=== PATIENT | female | born 1935 | race African-American/Black ===

== ENCOUNTER 2017-01-12 19:57 | Observation (INO) | payer OTHER ==
[~2017-01-12] VITALS: Ht 153.9 cm; Wt 69.4 kg
[~2017-01-12 19:57] MED LIST: DILT240C2 PO
[2017-01-12] MEDS ORDERED: ASPIRIN CHEWABLE 81 MG TABLET. PO ONE (20:15)
[2017-01-12 20:17] LABS: BASO % 1 % (0-3); EOS % 2 % (0-3); HEMATOCRIT 45.3 % (36.0-47.0); HEMOGLOBIN 15.3 g/dL (12.0-15.5); LYMPH % 26 % (24-48); MEAN CORPUSCULAR HEMOGLOBIN 31 pg (25-35); MEAN CORPUSCULAR HGB CONC 34 g/dL (31-37); MEAN CORPUSCULAR VOLUME 92 fL (79-100); MONO % 7 % (0-9); NEUT % 65 % (31-73); PLATELET COUNT 337 x10^3/uL (140-400); RED BLOOD COUNT 4.93 x10^6/uL (3.50-5.40); RED CELL DISTRIBUTION WIDTH 14.2 % (11.5-14.5); WHITE BLOOD COUNT 7.9 x10^3/uL (4.0-11.0)
[2017-01-12] MEDS ORDERED: LABETALOL 20 MG/4 ML DISP.SYRIN. IVP ONE (20:30)
[2017-01-12 20:35] LABS: CALCIUM 9.5 mg/dL (8.5-10.1); CREATININE 1.2 mg/dL (0.6-1.0); POTASSIUM 3.2 mmol/L (3.5-5.1)
[2017-01-12 20:39] LABS: ALBUMIN 3.6 g/dL (3.4-5.0); DIRECT BILIRUBIN 0.1 mg/dL (0.0-0.2); TOTAL BILIRUBIN 0.2 mg/dL (0.2-1.0); TOTAL PROTEIN 8.9 g/dL (6.4-8.2)
[2017-01-12] MEDS ORDERED: MORPHINE SULFATE 2 MG/ML DISP.SYRIN. IV PRN (20:45)
[2017-01-12] MEDS ORDERED: ONDANSETRON PF 4 MG/2 ML VIAL. IV PRN (20:45)
[2017-01-12] MEDS ORDERED: POTASSIUM CHLORIDE 20 MEQ TABLET.ER. PO ONE (21:00)
--- NOTE | 2017-01-12 21:17 | PHYS DOC ---
Past Medical History Past Medical History: Hypertension, Other Additional Past Medical Histor: IRREGULAR HEART BEAT Past Surgical History: Other Alcohol Use: None Drug Use: None Adult General Chief Complaint Chief Complaint: CHEST PAIN HPI HPI 81-year-old female presenting to the emergency department today with chest pain and pressure. She reports this started around 7:00. It comes and goes and is mildly associated with shortness of breath. She denies nausea vomiting or diaphoresis. She has had a cough for the last few days. She denies unilateral leg swelling hemoptysis or personal or family history of blood clotting disorders. She denies fevers or chills. She has a history of high blood pressure , she denies a history of smoking. She denies diabetes. Review of systems is negative for fevers chills, abdominal pain nausea vomiting. All other review of systems is negative unless otherwise noted in history of present illness. ED course: 81-year-old female presenting to the emergency department with chest pain. Vital signs show the patient to be hypertensive. Otherwise afebrile with mild tachycardia. Pertinent physical exam findings show an unremarkable physical exam. Clear lungs bilaterally. EKG reviewed by myself shows sinus rhythm with a mildly tachycardic heart rate. ST segments congruent. [place] mildly leftward. Not consistent with ACS.Chest x-ray reviewed by myself shows no obvious infiltrate or pneumothorax present. No obvious acute cardiopulmonary process present. Blood work obtained and unremarkable other than mild low potassium. Troponin negative. Given patient's age and symptomatology, patient admitted for serial troponins and further evaluation workup and care. Cardiology consult placed. Review of Systems Review of Systems SEE ABOVE. Current Medications Current Medications Current Medications Medications (Trade) Dose Ordered Sig/[facility] Start Time Stop Time Status Last Admin Dose Admin Aspirin (Children'S Aspirin) 81 mg 1X ONCE 01/12/17 20:15 01/12/17 20:16 DC 01/12/17 20:23 81 MG Labetalol HCl (Normodyne) 10 mg 1X ONCE 01/12/17 20:30 01/12/17 20:31 DC 01/12/17 20:34 10 MG Allergies Allergies Allergies Coded Allergies Type Severity Reaction Last Updated Verified Penicillins Allergy Intermediate 06/09/16 Yes Physical Exam Physical Exam SEE ABOVE Constitutional: Well developed, well nourished, no acute distress, non-toxic appearance. [] HENT: Normocephalic, atraumatic, bilateral external ears normal, oropharynx moist, no oral exudates, nose normal. [] Eyes: PERRLA, EOMI, conjunctiva normal, no discharge. [] Neck: Normal range of motion, no tenderness, supple, no stridor. [] Cardiovascular:Heart rate regular rhythm, no murmur [] Lungs & Thorax: Bilateral breath sounds clear to auscultation [] Abdomen: Bowel sounds normal, soft, no tenderness, no masses, no pulsatile masses. [] Skin: Warm, dry, no erythema, no rash. [] Back: No tenderness, no CVA tenderness. [] Extremities: No tenderness, no cyanosis, no clubbing, ROM intact, no edema. [] Neurologic: Alert and oriented X 3, normal motor function, normal sensory function, no focal deficits noted. [] Psychologic: Affect normal, judgement normal, mood normal. [] Current Patient Data Vital Signs Vital Signs Date Time Temp Pulse Resp B/P (MAP) Pulse Ox O2 Delivery O2 Flow Rate FiO2 01/12/17 20:38 98 25 177/98 (124) 96 Room Air 01/12/17 20:01 98.6 98.6 Lab Values Laboratory Tests Test 01/12/17 20:10 White Blood Count 7.9 x10^3/uL (4.0-11.0) Red Blood Count 4.93 x10^6/uL (3.50-5.40) Hemoglobin 15.3 g/dL (12.0-15.5) Hematocrit 45.3 % (36.0-47.0) Mean Corpuscular Volume 92 fL (79-100) Mean Corpuscular Hemoglobin 31 pg (25-35) Mean Corpuscular Hemoglobin Concent 34 g/dL (31-37) Red Cell Distribution Width 14.2 % (11.5-14.5) Platelet Count 337 x10^3/uL (140-400) Neutrophils (%) (Auto) 65 % (31-73) Lymphocytes (%) (Auto) 26 % (24-48) Monocytes (%) (Auto) 7 % (0-9) Eosinophils (%) (Auto) 2 % (0-3) Basophils (%) (Auto) 1 % (0-3) Neutrophils # (Auto) 5.1 x10^3uL (1.8-7.7) Lymphocytes # (Auto) 2.0 x10^3/uL (1.0-4.8) Monocytes # (Auto) 0.6 x10^3/uL (0.0-1.1) Eosinophils # (Auto) 0.1 x10^3/uL (0.0-0.7) Basophils # (Auto) 0.0 x10^3/uL (0.0-0.2) Sodium Level 141 mmol/L (136-145) Potassium Level 3.2 mmol/L (3.5-5.1) L Chloride Level 102 mmol/L (98-107) Carbon Dioxide Level 27 mmol/L (21-32) Anion Gap 12 (6-14) Blood Urea Nitrogen 12 mg/dL (7-20) Creatinine 1.2 mg/dL (0.6-1.0) H Estimated GFR (Cockcroft-Gault) 52.0 Glucose Level 129 mg/dL (70-99) H Calcium Level 9.5 mg/dL (8.5-10.1) Total Bilirubin 0.2 mg/dL (0.2-1.0) Direct Bilirubin 0.1 mg/dL (0.0-0.2) Aspartate Amino Transferase (AST) 35 U/L (15-37) Alanine Aminotransferase (ALT) 31 U/L (14-59) Alkaline Phosphatase 137 U/L (46-116) H Troponin I Quantitative < 0.017 ng/mL (0.000-0.055) KG-Qqf-H-Type Natriuretic Peptide 157 pg/mL (0-449) Total Protein 8.9 g/dL (6.4-8.2) H Albumin 3.6 g/dL (3.4-5.0) Lipase 208 U/L (73-393) Laboratory Tests 01/12/17 20:10 Laboratory Tests 01/12/17 20:10 EKG EKG [] Radiology/Procedures Radiology/Procedures [] Course & Med Decision Making Course & Med Decision Making Pertinent Labs and Imaging studies reviewed. (See chart for details) [] Dragon Disclaimer Dragon Disclaimer This electronic medical record was generated, in whole or in part, using a voice recognition dictation system. Departure Departure Impression: Primary Impression: Chest pain Disposition: ADMITTED INPATIENT Admitting Physician: Oleksandr Prajapati Condition: STABLE Referrals: GURWINDER CANCINO MD (PCP) BALDOMERO PLATA MD Jan 12, 2017 21:17
[2017-01-12 21:30] VITALS: BP 187/100
[2017-01-12] MEDS ORDERED: ENALAPRILAT 1.25 MG/ML VIAL. IV PRN (22:15)
[2017-01-12] MEDS ORDERED: ENALAPRILAT 2.5 MG/2 ML VIAL. IV ONE (22:15)
[2017-01-12 23:00] VITALS: BP 141/85
[2017-01-13 03:00] VITALS: BP 157/84
[2017-01-13 03:07] LABS: BASO % 1 % (0-3); EOS % 2 % (0-3); HEMATOCRIT 39.1 % (36.0-47.0); HEMOGLOBIN 13.2 g/dL (12.0-15.5); LYMPH # 1.5 x10^3/uL (1.0-4.8); LYMPH % 20 % (24-48); MEAN CORPUSCULAR HEMOGLOBIN 31 pg (25-35); MEAN CORPUSCULAR HGB CONC 34 g/dL (31-37); MEAN CORPUSCULAR VOLUME 92 fL (79-100); MONO % 10 % (0-9); NEUT % 68 % (31-73); PLATELET COUNT 276 x10^3/uL (140-400); RED BLOOD COUNT 4.27 x10^6/uL (3.50-5.40); RED CELL DISTRIBUTION WIDTH 14.2 % (11.5-14.5); WHITE BLOOD COUNT 7.7 x10^3/uL (4.0-11.0)
[2017-01-13 03:12] LABS: CALCIUM 8.8 mg/dL (8.5-10.1); CREATININE 1.1 mg/dL (0.6-1.0); GFR 57.5; POTASSIUM 3.7 mmol/L (3.5-5.1)
[2017-01-13 07:00] VITALS: BP 164/80
--- NOTE | 2017-01-13 07:13 | EKG ---
[facility] [address] [place] [address] Test Date: 2017-01-12 Test Time: 20:05:32 Pat Name: ANGELO WILDER Department: Room: Gender: F Network Operations Specialist: : 1935 Requested By: BALDOMERO PLATA Order Number: [id number] Reading MD: Measurements Intervals [place] Rate: 103 P: 28 CO: 166 QRS: -14 QRSD: 72 T: 96 QT: 356 QTc: 468 Interpretive Statements SINUS TACHYCARDIA LEFT ATRIAL ABNORMALITY LEFTWARD AXIS QRS(T) CONTOUR ABNORMALITY CONSIDER ANTEROSEPTAL MYOCARDIAL DAMAGE T ABNORMALITY IN ANTERIOR LEADS LATERAL LEADS RI6.01 Unconfirmed report No previous ECG available for comparison
--- NOTE | 2017-01-13 07:32 | RAD ---
Portable chest, 01/12/2017: History: Chest pain, tachycardia Comparison is made to a study from 06/09/2016. The heart is at the upper limits of normal in size. The pulmonary vascularity is normal. There is mild aortic atherosclerosis. No pulmonary infiltrates are seen. There is no evidence of pleural fluid. IMPRESSION: No acute cardiopulmonary abnormality is detected.
[2017-01-13] MEDS ORDERED: LABETALOL 20 MG/4 ML DISP.SYRIN. IVP PRN (09:15)
--- NOTE | 2017-01-13 09:16 | PDOC2 ---
SWETHA HERNÁNDEZ CONTROL MANAGER 01/13/17 0916: CARDIAC CONSULT DATE OF CONSULT Date of Consult DATE: 01/13/17 TIME: 09:02 REASON FOR CONSULT Reason for Consult: CP REFERRING PHYSICIAN Referring Physician: Reba SOURCE Source: Chart review, Patient HISTORY OF PRESENT ILLNESS HISTORY OF PRESENT ILLNESS This is a pleasant 81 yo female admitted for complains of CP. Reports that she has been feeling more tired lately and blaming this upon start of Cardizem. Also sometimes feeling CAO. Reports that yesterday she fel palpitations and decided to walk it off but got worse. This recurred at least 3 times yesterday which seemed became longer. This was associated with SOA, lightheadedness and chest tightness. Upon admission she was noted with uncontrolled BP rather than fast HR. Unfortunately she does not check her BP/HR at home since she does not have any machine for it. She has been taking cardizem in replacement to her enalapril/HCTZ/catapres for PSVT. Denies AFIB/aflutter and she does not take any ASA. Her BP was much better after labetolol and enalaprilat IV. She did skip one night of her cardizem otherwise she is complaint with her medications. Denies any decongestant use, excessive caffeinated beverage consumption. Denies any falls or injury. She has been having dry cough lately but denies any nasal congestion. No fever or chills. PAST MEDICAL HISTORY Cardiovascular: HTN, Hyperlipidemia, Other (PSVT) Pulmonary: No pertinent hx CENTRAL NERVOUS SYSTEM: Other GI: No pertinent hx Heme/Onc: No pertinent hx Hepatobiliary: No pertinent hx Psych: No pertinent hx Musculoskeletal: Osteoarthritis, Other (Vitamin D deficiency) Rheumatologic: No pertinent hx Infectious disease: No pertinent hx ENT: No pertinent hx Renal/: No pertinent hx Endocrine: No pertinent hx PAST SURGICAL HISTORY Past Surgical History: No pertinent history FAMILY HISTORY Family History: Hypertension SOCIAL HISTORY Smoke: No ALCOHOL: none Drugs: None Lives: Alone CURRENT MEDICATIONS CURRENT MEDICATIONS Current Medications Medications (Trade) Dose Ordered Sig/Judit Route PRN Reason Start Time Stop Time Status Last Admin Dose Admin Aspirin (Children'S Aspirin) 81 mg 1X ONCE PO 01/12/17 20:15 01/12/17 20:16 DC 01/12/17 20:23 Labetalol HCl (Normodyne) 10 mg 1X ONCE IVP 01/12/17 20:30 01/12/17 20:31 DC 01/12/17 20:34 Potassium Chloride (Klor-Con) 20 meq 1X ONCE PO 01/12/17 21:00 01/12/17 21:01 DC 01/12/17 21:14 Enalaprilat (Vasotec) 2.5 mg 1X ONCE IV 01/12/17 22:15 01/12/17 22:16 DC 01/12/17 22:44 ALLERGIES ALLERGIES: Coded Allergies: Penicillins (Verified Allergy, Intermediate, 06/09/16) ROS Review of System 14 point ROS evaluated with pertinent positives noted per HPI PHYSICAL EXAM General: Alert, Oriented X3, Cooperative, No acute distress HEENT: Atraumatic, Mucous membr. moist/pink Lungs: Clear to auscultation, Normal air movement Heart: Regular rate (SR), Normal S1, Normal S2, Other (2/6 systolic murmur to LLS border) Abdomen: Soft, No tenderness Extremities: No cyanosis, No edema Skin: No breakdown, No significant lesion Neuro: Normal speech, Sensation intact Psych/Mental Status: Mental status NL, Mood NL MUSCULOSKELETAL: Osteoarthritic changes both hands VITALS VITALS Vital Signs Date Time Temp Pulse Resp B/P (MAP) Pulse Ox O2 Delivery O2 Flow Rate FiO2 01/13/17 08:15 Room Air 01/13/17 07:00 97.9 64 16 164/80 (108) 98 97.9 LABS Lab: Laboratory Tests Test 01/12/17 20:10 01/13/17 02:50 White Blood Count 7.9 x10^3/uL (4.0-11.0) 7.7 x10^3/uL (4.0-11.0) Red Blood Count 4.93 x10^6/uL (3.50-5.40) 4.27 x10^6/uL (3.50-5.40) Hemoglobin 15.3 g/dL (12.0-15.5) 13.2 g/dL (12.0-15.5) Hematocrit 45.3 % (36.0-47.0) 39.1 % (36.0-47.0) Mean Corpuscular Volume 92 fL (79-100) 92 fL (79-100) Mean Corpuscular Hemoglobin 31 pg (25-35) 31 pg (25-35) Mean Corpuscular Hemoglobin Concent 34 g/dL (31-37) 34 g/dL (31-37) Red Cell Distribution Width 14.2 % (11.5-14.5) 14.2 % (11.5-14.5) Platelet Count 337 x10^3/uL (140-400) 276 x10^3/uL (140-400) Neutrophils (%) (Auto) 65 % (31-73) 68 % (31-73) Lymphocytes (%) (Auto) 26 % (24-48) 20 % (24-48) Monocytes (%) (Auto) 7 % (0-9) 10 % (0-9) Eosinophils (%) (Auto) 2 % (0-3) 2 % (0-3) Basophils (%) (Auto) 1 % (0-3) 1 % (0-3) Neutrophils # (Auto) 5.1 x10^3uL (1.8-7.7) 5.3 x10^3uL (1.8-7.7) Lymphocytes # (Auto) 2.0 x10^3/uL (1.0-4.8) 1.5 x10^3/uL (1.0-4.8) Monocytes # (Auto) 0.6 x10^3/uL (0.0-1.1) 0.7 x10^3/uL (0.0-1.1) Eosinophils # (Auto) 0.1 x10^3/uL (0.0-0.7) 0.1 x10^3/uL (0.0-0.7) Basophils # (Auto) 0.0 x10^3/uL (0.0-0.2) 0.0 x10^3/uL (0.0-0.2) Sodium Level 141 mmol/L (136-145) 144 mmol/L (136-145) Potassium Level 3.2 mmol/L (3.5-5.1) 3.7 mmol/L (3.5-5.1) Chloride Level 102 mmol/L (98-107) 107 mmol/L (98-107) Carbon Dioxide Level 27 mmol/L (21-32) 30 mmol/L (21-32) Anion Gap 12 (6-14) 7 (6-14) Blood Urea Nitrogen 12 mg/dL (7-20) 11 mg/dL (7-20) Creatinine 1.2 mg/dL (0.6-1.0) 1.1 mg/dL (0.6-1.0) Estimated GFR (Cockcroft-Gault) 52.0 57.5 Glucose Level 129 mg/dL (70-99) 102 mg/dL (70-99) Calcium Level 9.5 mg/dL (8.5-10.1) 8.8 mg/dL (8.5-10.1) Total Bilirubin 0.2 mg/dL (0.2-1.0) Direct Bilirubin 0.1 mg/dL (0.0-0.2) Aspartate Amino Transf (AST/SGOT) 35 U/L (15-37) Alanine Aminotransferase (ALT/SGPT) 31 U/L (14-59) Alkaline Phosphatase 137 U/L (46-116) Troponin I Quantitative < 0.017 ng/mL (0.000-0.055) 0.038 ng/mL (0.000-0.055) ZX-Gjm-P-Type Natriuretic Peptide 157 pg/mL (0-449) Total Protein 8.9 g/dL (6.4-8.2) Albumin 3.6 g/dL (3.4-5.0) Lipase 208 U/L (73-393) ECHOCARDIOGRAM ECHOCARDIOGRAM <Conclusion> Left ventricle systolic function is normal. The Ejection Fraction is 55-60%. There is normal LV segmental wall motion. No significant valvular disease. 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 Chest pain: Suspect due to tachyarrhythmia/palpitations. Typical features, will rule out ischemic origin 3. HLP 4. Hx of PSVT: likely episode of brief AFIB with aberrancy Recommendations 1. TTE and MPI today 2. Lipids, trop, TSH, repeat EKG 3. Resume home cardizem, restart lisinopril and HCTZ. Labetolol IV PRN 4. Replace K. 5. Pending report of MPI, will start on antiarrhythmic therapy. 6. Start on ECASA 81 mg and will consider for outpt event monitor if none has been done recently Problems: JAN FIORE MD 01/13/17 1419: CARDIAC CONSULT ALLERGIES ALLERGIES: Coded Allergies: Penicillins (Verified Allergy, Intermediate, 06/09/16) ASSESSMENT/PLAN ASSESSMENT/PLAN Patient seen and examined. Agree with SOLAR ENERGY SYSTEMS DESIGNER's assessment and plan Chest pain with atypical features. Myocardial infarction ruled out. 2-D echo showed normal LV function without any regional wall motion abnormalities. Plan for Lexiscan nuclear stress test to rule out ischemia. Resume home medications and titrate for better pressure control. Thank you for your consultation. Problems: SWETHA HERNÁNDEZ APRN Jan 13, 2017 09:16 JAN FIORE MD Jan 13, 2017 14:19
--- NOTE | 2017-01-13 09:29 | EKG ---
[facility] [address] [place] [address] Test Date: 2017-01-13 Test Time: 09:18:08 Pat Name: ANGELO WILDER Department: Room: 582 1 Gender: F Construction Rigger: JAVIER : 1935 Requested By: SWETHA HERNÁNDEZ Order Number: [id number] Reading MD: Measurements Intervals [place] Rate: 67 P: 42 NM: 186 QRS: -8 QRSD: 76 T: 60 QT: 430 QTc: 457 Interpretive Statements SINUS RHYTHM LEFTWARD AXIS QRS(T) CONTOUR ABNORMALITY CONSIDER ANTEROSEPTAL MYOCARDIAL DAMAGE POSSIBLY ABNORMAL ECG RI6.01 Compared to ECG 06/09/2016 10:55:39 Atrial abnormality no longer present
[2017-01-13] MEDS ORDERED: LISINOPRIL 10 MG TABLET PO SCH (10:00)
[2017-01-13] MEDS ORDERED: ASPIRIN ENTERIC COATED 81 MG TABLET.DR. PO SCH (10:00)
[2017-01-13 11:00] VITALS: BP 168/95
[2017-01-13] MEDS ORDERED: LORazepam 0.5 MG TABLET PO ONE (11:00)
--- NOTE | 2017-01-13 11:08 | CARD ---
APPROVED REPORT EXAM: Two-dimensional and M-mode echocardiogram with Doppler and color Doppler. Other Information Quality : Good INDICATION Hypertension/HCVD Chest Pain 2D DIMENSIONS RVDd2.0 (2.9-3.5cm)Left Atrium(2D)2.1 (1.6-4.0cm) IVSd1.5 (0.7-1.1cm)Aortic Root(2D)2.6 (2.0-3.7cm) LVDd3.6 (3.9-5.9cm)LVOT Diameter1.9 (1.8-2.4cm) PWd1.3 (0.7-1.1cm)LVDs2.1 (2.5-4.0cm) FS (%) 30.0 %SV40.9 ml LVEF(%)60.0 (>50%) Aortic Valve AoV Peak Perez.127.1cm/sAoV VTI24.8cm AO Peak GR.6.5mmHgLVOT Peak Perez.105.9cm/s AO Mean GR.4mmHgAVA (VMAX)2.36cm2 VIKKI (VTI)2.70cm2 Mitral Valve MV E Biyetnqi99.1cm/sMV DECEL [id number] MV A Owpqjheu490.1cm/sE/A Ratio0.5 Tricuspid Valve TR P. Amsrlsnx703sm/sRAP HVAKUQXG8frMr TR Peak Gr.60buUoLHJY98yzCc Pulmonary Vein S1 Kxstmjrz66.7cm/sD2 Aeokavme26.6cm/s LEFT VENTRICLE The left ventricle is normal size. There is mild to moderate concentric left ventricular hypertrophy. The left ventricular systolic function is normal. The Ejection Fraction is 55-60%. There is normal L V segmental wall motion. Transmitral Doppler flow pattern is Grade I-abnormal relaxation pattern. RIGHT VENTRICLE The right ventricle is normal size. The right ventricular systolic function is normal. ATRIA The left atrium size is normal. The right atrium size is normal. The interatrial septum is intact wit h no evidence for an atrial septal defect or patent foramen ovale as noted on 2-D or Doppler imaging. AORTIC VALVE The aortic valve is calcified but opens well. Doppler and Color Flow revealed no significant aortic r egurgitation. There is no significant aortic valvular stenosis. MITRAL VALVE The mitral valve is calcified but opens well. There is no evidence of mitral valve prolapse. There is no mitral valve stenosis. Doppler and Color-flow revealed trace to mild mitral regurgitation. TRICUSPID VALVE The tricuspid valve is normal in structure and function. Doppler and Color Flow revealed trace tricus pid regurgitation. There is mild pulmonary hypertension. The PA pressure was estimated at 31 mmHg. Th ere is no tricuspid valve stenosis. PULMONIC VALVE The pulmonary valve is normal in structure and function. Doppler and Color Flow revealed trace to mil d pulmonic valvular regurgitation. There is no pulmonic valvular stenosis. GREAT VESSELS The aortic root is normal in size. The ascending aorta is normal in size. The IVC is normal in size a nd collapses >50% with inspiration. PERICARDIAL EFFUSION There is a small pericardial effusion. Critical Notification Critical Value: No <Conclusion> The left ventricular systolic function is normal. The Ejection Fraction is 55-60%. There is normal LV segmental wall motion. Transmitral Doppler flow pattern is Grade I-abnormal relaxation pattern. Trace to mild mitral regurgitation. Trace tricuspid regurgitation. The PA pressure was estimated at 31 mmHg. There is a small pericardial effusion.
[2017-01-13] MEDS ORDERED: ASPIRIN ENTERIC COATED 81 MG TABLET.DR. PO ONE (12:29)
[2017-01-13] MEDS ORDERED: LORazepam 0.5 MG TABLET ONE (12:30)
[2017-01-13] MEDS ORDERED: REGADENOSON 0.4 MG/5 ML DISP.SYRIN. IV ONE (13:00)
--- NOTE | 2017-01-13 13:18 | HP ---
ADMIT DATE: 01/12/2017 CHIEF COMPLAINT: Chest pain. HISTORY OF PRESENT ILLNESS: Ms. Pereira is an 81-year-old -[place] woman who presented to the Emergency Room last night with chest pain. 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 The pain was in the middle of her chest, when she was walking back to her room. It abated when she sat down. She affirms some shortness of breath with this. She decided to go home. Had another episode there, also with walking, and when it happened for a third time, she decided to come to the Emergency Room. She did have similar symptoms in the past, actually sought medical care, but never had a cardiac catheterization done. She denies any other symptoms including nausea or dizziness. When she came to the Emergency Room, she was found with significantly elevated blood pressure. She does have a history of paroxysmal SVT, but denies any AFib or atrial flutter or other arrhythmias. PAST MEDICAL HISTORY: Hypertension, hyperlipidemia, paroxysmal SVT. FAMILY HISTORY: Positive for hypertension, heart disease and diabetes. SOCIAL HISTORY: Lives by herself, never smoked. No toxic habits. ALLERGIES: PENICILLIN. MEDICATIONS: MAR reconciled with home medications. REVIEW OF SYSTEMS: Chest pain currently is resolved. She denies any other symptoms in rest of organ system review. PHYSICAL EXAMINATION: VITAL SIGNS: From today show a blood pressure of 168/95, heart rate of 68, respiratory rate at 16. She is afebrile. GENERAL: This is a well-nourished 81-year-old -[place] woman, appearing younger than her stated age, alert and oriented, in no acute distress. HEENT: Shows no scleral icterus. NECK: Supple, without any JVD or lymphadenopathy. LUNGS: Clear to auscultation bilaterally. HEART: Regular rate and rhythm without any murmurs. ABDOMEN: Has positive bowel sounds, soft, nontender. EXTREMITIES: Show no edema, no clubbing, no cyanosis. SKIN: Warm, soft and dry without any rash. NEUROLOGIC: She appears grossly intact. LABORATORY DATA: CBC with a WBC of 7.7, hemoglobin 13.2, platelets of 276. BUN and creatinine of 11 and 1.1. Electrolytes within normal limits. Troponins with minimal increase to 0.038. LFTs obtained with an LDL at 139. RADIOGRAPHIC FINDINGS: Chest x-ray shows no acute cardiopulmonary abnormality. ASSESSMENT AND PLAN: Ms. Pereira is an 81-year-old -[place] woman who presented with anginal type chest pain. Cardiology has been consulted. She will undergo echocardiogram and stress test. Need for catheterization depends on the findings. I appreciate input. We will continue her diltiazem for now. Blood pressure clearly is uncontrolled, and may be actually the underlying etiology for her chest pain. We will start on lisinopril. Aspirin and statin will be added as well. OMA HAM MD DR: UR/nts JOB#: [id number] / [id number] Rosa Cleaning MD MTDD
[2017-01-13 13:32] VITALS: BP 168/95
[2017-01-13] MEDS ORDERED: hydroCHLOROthiazide 12.5 MG CAPSULE ONE (14:46)
[2017-01-13] MEDS ORDERED: POTASSIUM CHLORIDE 10 MEQ TABLET.ER. PO ONE (14:47)
[2017-01-13] MEDS ORDERED: hydroCHLOROthiazide 12.5 MG CAPSULE PO SCH (15:00)
[2017-01-13] MEDS ORDERED: POTASSIUM CHLORIDE 10 MEQ TABLET.ER. PO SCH (15:00)
--- NOTE | 2017-01-13 15:03 | RAD ---
APPROVED REPORT Test Type: Pharmacological Stress Nurse/Tech: Rody Araujo R.N. Test Indications: Chest pain Cardiac History: HTN Medications: SEE EMR Medical History: SEE EMR Resting ECG: SR Resting Heart Rate: 71 bpm Resting Blood Pressure: 176/95mmHg Pretest Chest Pain: None Nurse/Tech Notes S1S2, lungs CTA, denied chest pain or SOA. Pt states that when she was admitted into the hospital her blood pressure was 190 and she was experiencing chest pain which has since resolved. Consent: The procedure was explained to the patient in lay terms. Informed consent was witnessed. Mickey eout was entered into [employer]. History and Stress Test performed by Rody Araujo R.N. Pharm. Details Pharmacologic stress testing was performed using 0.4mg per 5ml of regadenoson given intravenously ove r 7-10 seconds. Stress Symptoms SOA. SOTELO. POST EXERCISE Reason for Termination: Infusion complete Max HR: 102 bpm Max Blood Pressure: 179/76mmHg Blood Pressure response to exercise: Normal blood pressure response during stress. Heart Rate response to exercise: Normal Chest Pain: No. Arrhythmia: No. ST Change: No. INTERPRETATION Stress EKG Conclusion: The resting EKG shows a sinus rhythm, incomplete right bundle branch block and nonspecific ST segment changes. The stress EKG shows no significant changes from baseline. No EKG evidence of stressed induced ischemia. Imaging Protocol IMAGE PROTOCOL: Rest Tc-99m/stress Tc-99m 1 day Rest: Stress: Viability: Radiopharm.Tc99m KqfikmokyUm75i Sestamibi Fllo09iDv 30.8mCi Duration 15min. 10min. Img Date 01/13/2017 01/13/2017 Inj-Img Gcon20dko. 60min. Rest Admin Site:IV - Left AntecubitalAdministrator:RT Lexus (R)(N) Stress Admin Site: IV - Left AntecubitalAdministrator: RAMBO Jimenez STRESS DATA End Diast. Vol.56.0mlAv. Heart Rate74.0bpm End Syst. Vol.9.0mlCO Index BSA0.0L/min Myocardial Qkkz549.0gEject. Hisekhxk74.0% Stress Rates Pk. Fill Rate5.00EDV/secLVtime Pk. Fill 242.63msec Pk. Empty Rate4.88ESV/secLVtime Pk. Ygflv713.28msec / Pk. Fill1.10EDV/sec Stress Scores Regional WT2.00Summed WT13.00 Regional WM0.00Summed WM1.00 LV Perfusion The stress scans showed no significant defects. The rest scans showed no significant defects. Nuclear imaging shows no reversible ischemia or infarct. Wall Motion Left ventricular systolic function is normal with an ejection fraction of greater than 70%. LV Perf. Quant 17 Seg. SSS4.00 17 Seg. SRS0.00 17 Seg. SDS4.00 Stress Defect Extent (% LAD)0.00Rest Defect Extent (% LAD)0.00Rev. Defect Extent (% LAD)0.00 Stress Defect Extent (% LCX) 52.50Rest Defect Extent (% LCX)0.00Rev. Defect Extent (% LCX)23.80 Stress Defect Extent (% RCA)0.00Rest Defect Extent (% RCA)0.00Rev. Defect Extent (% RCA)0.00 Stress Defect Extent (% MATT)9.10Rest Defect Extent (% MATT)0.00Rev. Defect Extent (% MATT)4.10 Conclusion 1. No EKG evidence of stress-induced ischemia. 2. Nuclear imaging shows no reversible ischemia or infarct. 3. Normal left ventricular systolic function with an ejection fraction of greater than 70%. 4. Low risk Lexiscan nuclear stress test.
[2017-01-13] MEDS ORDERED: POTA10TA12 PO (16:08)
[2017-01-13] MEDS ORDERED: HYDR12.53 PO (16:08)
[2017-01-13] MEDS ORDERED: LISI10TA2 PO (16:08)
[2017-01-13] MEDS ORDERED: ATOR10TA60 PO (16:08)
[2017-01-13] MEDS ORDERED: ASPI-612 PO (16:08)
--- NOTE | 2017-01-13 18:16 | DS ---
DATE OF DISCHARGE: 01/13/2017 CHIEF COMPLAINT: Chest pain. HOSPITAL COURSE: The patient is an 81-year-old woman who initially presented to the Emergency Room with recurrent chest pain (please refer to admission note from same day) and cardiac consult was obtained and she underwent echocardiogram as well as myocardial perfusion imaging, which did not show any ischemia or ACS. In further discussion, plan was for Holter monitor to rule out any arrhythmia starting tomorrow. PHYSICAL EXAMINATION: Please refer to admission note from 01/13/2017. DISCHARGE DIAGNOSES: Chest pain. DISCHARGE DISPOSITION: To home. DISCHARGE CONDITION: Stable. DISCHARGE MEDICATIONS: Please refer to MAR. DISCHARGE INSTRUCTIONS: The patient will follow up with Cardiology as previously arranged. She will also see her primary care physician in 1-2 weeks. OMA HAM MD DR: UR/nts JOB#: [id number] / [id number] GURWINDER Lara MD MTDD
[2017-01-13] MEDS ORDERED: ATORVASTATIN CALCIUM 10 MG TABLET. PO SCH (21:00)
== END 2017-01-13 18:05 | disposition home or self-care (01) ==
LOC: ER 19:57 → 5 SOUTH 20:42
PROVIDERS: ADMIT Internal Medicine; ATTEND Internal Medicine
DX: I20.9 Angina pectoris, unspecified (principal); I10 Essential (primary) hypertension; R00.0 Tachycardia, unspecified; I47.1 Supraventricular tachycardia; E78.5 Hyperlipidemia, unspecified; I49.9 Cardiac arrhythmia, unspecified
CPT/HCPCS: 36415; 71010; 78452; 80048; 80061; 80076; 83690; 83880; 84443; 84484; 85025; 93005; 93017; 93306; 96374; 96375; 99285; A9500; G0378; G0379; J2785; J3490; 96376

== ENCOUNTER → 2017-09-07 | Outpatient (CLI) | payer OTHER | END | disposition home or self-care (01) | LOC: ECHO 12:46 | DX: I08.1 Rheumatic disorders of both mitral and tricuspid valves (principal); I31.3 Pericardial effusion (noninflammatory); I10 Essential (primary) hypertension; E78.5 Hyperlipidemia, unspecified | CPT/HCPCS: 93306 ==

== ENCOUNTER 2019-05-26 17:26 | Emergency (ER) | payer MEDICARE, OTHER ==
[~2019-05-26] VITALS: Ht 167.6 cm; Wt 54.5 kg
[~2019-05-26 17:26] MED LIST changes: +ASPI-612 PO; +ATOR10TA60 PO; +HYDR12.575 PO; +LISI10TA2 PO; +POTA10TA12 PO
[2019-05-26 18:13] LABS: BASO # 0.1 x10^3/uL (0.0-0.2); BASO % 1 % (0-3); EOS # 0.1 x10^3/uL (0.0-0.7); EOS % 2 % (0-3); HEMATOCRIT 39.8 % (36.0-47.0); HEMOGLOBIN 13.5 g/dL (12.0-15.5); LYMPH # 1.8 x10^3/uL (1.0-4.8); LYMPH % 24 % (24-48); MEAN CORPUSCULAR HEMOGLOBIN 31 pg (25-35); MEAN CORPUSCULAR HGB CONC 34 g/dL (31-37); MEAN CORPUSCULAR VOLUME 92 fL (79-100); MONO # 0.7 x10^3/uL (0.0-1.1); MONO % 10 % (0-9); NEUT # 4.8 x10^3/uL (1.8-7.7); NEUT % 64 % (31-73); PLATELET COUNT 384 x10^3/uL (140-400); RED BLOOD COUNT 4.33 x10^6/uL (3.50-5.40); RED CELL DISTRIBUTION WIDTH 13.6 % (11.5-14.5); WHITE BLOOD COUNT 7.5 x10^3/uL (4.0-11.0)
[2019-05-26 18:15] LABS: BILIRUBIN,URINE NEGATIVE (NEG); CLARITY,URINE CLEAR; COLOR,URINE YELLOW; NITRITE,URINE NEGATIVE (NEG); PH,URINE 7.5; PROTEIN,URINE NEGATIVE (NEG-TRACE); UROBILINOGEN,URINE 0.2 mg/dL (0.2 mg/dL)
[2019-05-26] MEDS ORDERED: LABETALOL 20 MG/4 ML DISP.SYRIN. IVP ONE (18:15)
[2019-05-26 18:21] LABS: BACTERIA,URINE 0 /HPF (0-FEW); RBC,URINE 0 /HPF (0-2); SQUAMOUS EPITHELIAL CELL,UR OCC /LPF; WBC,URINE OCC /HPF (0-4)
--- NOTE | 2019-05-26 18:26 | PHYS DOC ---
Past Medical History Past Medical History: Hypertension, Other Additional Past Medical Histor: IRREGULAR HEART BEAT (ANGELITA GUAMAN DO) Past Surgical History: Other (ANGELITA GUAMAN DO) Alcohol Use: None Drug Use: None (ANGELITA GUAMAN DO) Adult General Chief Complaint Chief Complaint: Palpitations [facility] HPI Patient is a 83 year old -Al[place]ian [place] female with history of hypertension who presents with dizziness upon standing standing. Symptom onset was this morning. Patient denies dizziness at rest, headache vertigo, nausea, neck pain, tinnitus, change of hearing, focal extremity weakness loss of sensation or other strokelike symptom. Patient takes lisinopril/HCTZ and Cardizem controlled release daily. Patient's blood pressure noted to be 250s over 120s. Patient denies chest pain, shortness of breath, decreased urine output. Reports occasional skipped.. No other acute symptoms or complaints. She ran out of his occasions yesterday and symptoms began this morning and is waiting pharmacy to call her for prescription refill.[] (ANGELITA GUAMAN DO) Review of Systems Review of Systems ROS as per HPI All other systems were reviewed and found to be within normal limits, except as documented in this note. (ANGELITA GUAMAN DO) Current Medications Current Medications Current Medications Medications (Trade) Dose Ordered Sig/Judit Start Time Stop Time Status Last Admin Dose Admin Labetalol HCl (Normodyne Iv Push) 20 mg 1X ONCE 05/26/19 18:15 05/26/19 18:16 DC 05/26/19 18:22 20 MG Potassium Chloride (Klor-Con) 40 meq 1X ONCE 05/26/19 20:30 05/26/19 20:31 (ROBERTO WONG MD) Allergies Allergies Allergies Coded Allergies Type Severity Reaction Last Updated Verified Penicillins Allergy Intermediate 06/09/16 Yes (ROBERTO WONG MD) Physical Exam Physical Exam Constitutional: Well developed, well nourished, no acute distress, non-toxic appearance. [] HENT: Normocephalic, atraumatic, bilateral external ears normal, oropharynx moist, nose normal. [] Eyes: PERRLA, EOMI, conjunctiva normal, no discharge. [] Neck: Normal range of motion, no tenderness, supple, no stridor. [] Cardiovascular:Heart rate regular rhythm, no murmur, pounding peripheral pulses. [] Lungs & Thorax: Bilateral breath sounds clear to auscultation [] Abdomen: Bowel sounds normal, soft, no tenderness, no masses. [] Skin: Warm, dry, no erythema, no rash. [] Back: No tenderness. [] Extremities: No tenderness, no cyanosis, no clubbing, ROM intact, no edema. [] Neurologic: Alert and oriented X 3, CN 2-12, grossly intact, normal motor function, normal sensory function, no focal deficits noted. Normal symmetric [id number][] Psychologic: Affect normal, judgement normal, mood normal. [] (ANGELITA GUAMAN DO) Current Patient Data Vital Signs Vital Signs Date Time Temp Pulse Resp B/P (MAP) Pulse Ox O2 Delivery O2 Flow Rate FiO2 05/26/19 18:22 88 253/124 05/26/19 17:35 97.5 22 96 Room Air 97.5 (ROBERTO WONG MD) Lab Values Laboratory Tests Test 05/26/19 18:00 05/26/19 19:00 White Blood Count 7.5 x10^3/uL (4.0-11.0) Red Blood Count 4.33 x10^6/uL (3.50-5.40) Hemoglobin 13.5 g/dL (12.0-15.5) Hematocrit 39.8 % (36.0-47.0) Mean Corpuscular Volume 92 fL (79-100) Mean Corpuscular Hemoglobin 31 pg (25-35) Mean Corpuscular Hemoglobin Concent 34 g/dL (31-37) Red Cell Distribution Width 13.6 % (11.5-14.5) Platelet Count 384 x10^3/uL (140-400) Neutrophils (%) (Auto) 64 % (31-73) Lymphocytes (%) (Auto) 24 % (24-48) Monocytes (%) (Auto) 10 % (0-9) H Eosinophils (%) (Auto) 2 % (0-3) Basophils (%) (Auto) 1 % (0-3) Neutrophils # (Auto) 4.8 x10^3/uL (1.8-7.7) Lymphocytes # (Auto) 1.8 x10^3/uL (1.0-4.8) Monocytes # (Auto) 0.7 x10^3/uL (0.0-1.1) Eosinophils # (Auto) 0.1 x10^3/uL (0.0-0.7) Basophils # (Auto) 0.1 x10^3/uL (0.0-0.2) Urine Collection Type Unknown Urine Color Yellow Urine Clarity Clear Urine pH 7.5 Urine Specific Louann <=1.005 Urine Protein Negative mg/dL (NEG-TRACE) Urine Glucose (UA) Negative mg/dL (NEG) Urine Ketones (Stick) Negative mg/dL (NEG) Urine Blood Negative (NEG) Urine Nitrite Negative (NEG) Urine Bilirubin Negative (NEG) Urine Urobilinogen Dipstick 0.2 mg/dL (0.2 mg/dL) Urine Leukocyte Esterase Small (NEG) Urine RBC 0 /HPF (0-2) Urine WBC Occ /HPF (0-4) Urine Squamous Epithelial Cells Occ /LPF Urine Bacteria 0 /HPF (0-FEW) Sodium Level 145 mmol/L (136-145) Potassium Level 3.4 mmol/L (3.5-5.1) L Chloride Level 106 mmol/L (98-107) Carbon Dioxide Level 30 mmol/L (21-32) Anion Gap 9 (6-14) Blood Urea Nitrogen 13 mg/dL (7-20) Creatinine 1.1 mg/dL (0.6-1.0) H Estimated GFR (Cockcroft-Gault) 57.3 BUN/Creatinine Ratio 12 (6-20) Glucose Level 99 mg/dL (70-99) Calcium Level 9.0 mg/dL (8.5-10.1) Magnesium Level 1.9 mg/dL (1.8-2.4) Total Bilirubin 0.3 mg/dL (0.2-1.0) Aspartate Amino Transferase (AST) 33 U/L (15-37) Alanine Aminotransferase (ALT) 13 U/L (14-59) L Alkaline Phosphatase 93 U/L (46-116) Troponin I Quantitative < 0.017 ng/mL (0.000-0.055) AF-Fyq-M-Type Natriuretic Peptide 358 pg/mL (0-449) Total Protein 7.0 g/dL (6.4-8.2) Albumin 3.0 g/dL (3.4-5.0) L Albumin/Globulin Ratio 0.8 (1.0-1.7) L Thyroid Stimulating Hormone (TSH) 2.432 uIU/mL (0.358-3.74) Laboratory Tests 05/26/19 18:00 Laboratory Tests 05/26/19 19:00 (ROBERTO WONG MD) EKG EKG [EKG: Normal sinus rhythm, rate 89, with occasional PAC, no acute ST-T wave changes, QTC 454.] (ANGELITA GUAMAN DO) Radiology/Procedures Radiology/Procedures [CT head: Pending ] (ANGELITA GUAMAN DO) Course & Med Decision Making Course & Med Decision Making Pertinent Labs and Imaging studies reviewed. (See chart for details) [Symptomatic hypertension with dizziness upon standing and movement. Blood pressure 250s over 120s. No headache, focal neurologic deficits. IV labetalol given. CT head, labs pending. Patient care to be transitioned to Dr. Wong for review labs, management and final disposition. ] (ANGELITA GUAMAN DO) Course & Med Decision Making Blood pressure improved to 200/80's improved dizziness, this is subsequently resolved. Laboratory values aside from hypokalemia are unremarkable. This was replaced in the emergency department with 40 middle quadrant potassium. She states she feels well with like to be discharged home. We'll plan for refill patient's prescriptions upon discharge and follow-up as an outpatient with her primary care physician (ROBERTO WONG MD) Dragon Disclaimer Dragon Disclaimer This electronic medical record was generated, in whole or in part, using a voice recognition dictation system. (ANGELITA GUAMAN DO) Departure Departure Impression: Primary Impression: Dizziness Additional Impression: Accelerated hypertension Disposition: 01 HOME, SELF-CARE Condition: IMPROVED Referrals: GURWINDER CANCINO MD (PCP) Patient Instructions: Hypertension Additional Instructions: Recommend follow up with PCP 3 - 5 days Return to the ER with worsening symptoms, intractable pain, fever, altered mental status Tylenol/Motrin as needed for pain Refill - HCTZ 12.5mg/Lisinopril 10mg and Cardizem 240mg Scripts Diltiazem Hcl (CARDIZEM CD) 240 Mg Cap.er.24h 1 CAP PO DAILY, #30 CAP 5 Refills Prov: ROBERTO WONG MD 05/26/19 Hydrochlorothiazide (HYDROCHLOROTHIAZIDE TABLET) 12.5 Mg Tablet 12.5 MG PO DAILY for DIURETIC, #30 TAB 0 Refills Prov: ROBERTO WONG MD 05/26/19 Lisinopril (LISINOPRIL) 10 Mg Tablet 1 TAB PO DAILY, #30 TAB 0 Refills Prov: ROBERTO WONG MD 05/26/19 Problem Qualifiers ANGELITA GUAMAN DO May 26, 2019 18:26 ROBERTO WONG MD May 26, 2019 20:30
--- NOTE | 2019-05-26 18:27 | RAD ---
Exam: CT head INDICATION: Dizziness TECHNIQUE: Sequential axial images through the head were obtained without the administration of IV contrast. Comparisons: None FINDINGS: No focal parenchymal lesion or hemorrhage is identified. There is no midline shift or sulcal effacement. Patchy hypodensity in the periventricular white matter. No acute vascular territory infarction is identified. Jenkins-white distinction is preserved. The ventricular system is within normal limits without compression hydrocephalus. The basal cisterns are well maintained. Frothy secretions noted within the right maxillary sinus. No acute fractures. IMPRESSION: 1. Findings a small vessel ischemic change, technically age indeterminate without prior imaging. 2. Sinus disease as described above. Exposure: One or more of the following in the visualized dose reduction techniques were utilized for this examination: 1. Automated exposure control 2. Adjustment of the MA and/or KV according to patient size Use of iterative of reconstructive technique Electronically signed by: James Aldrich MD (05/26/2019 6:24 PM) [facility]
--- NOTE | 2019-05-26 18:44 | RAD ---
CHEST AP ONLY Clinical History: Chest pain and dyspnea Technique: AP view of the chest was obtained at 05/26/2019 6:05 PM. Findings: The heart is mildly enlarged. The pulmonary vasculature is normal. The lungs and pleural margins are clear. Impression: Mild cardiomegaly. Electronically signed by: Tien Malik III, MD (05/26/2019 6:41 PM) [id number]
[2019-05-26 19:34] LABS: CREATININE 1.1 mg/dL (0.6-1.0); GFR 57.3; POTASSIUM 3.4 mmol/L (3.5-5.1)
[2019-05-26 19:40] LABS: ALBUMIN/GLOBULIN RATIO 0.8 (1.0-1.7); MAGNESIUM 1.9 mg/dL (1.8-2.4); TOTAL BILIRUBIN 0.3 mg/dL (0.2-1.0)
[2019-05-26] MEDS ORDERED: LISI10TA2 PO (20:30)
[2019-05-26] MEDS ORDERED: HYDR12.58 PO (20:30)
[2019-05-26] MEDS ORDERED: DILT240C2 PO (20:30)
[2019-05-26] MEDS ORDERED: POTASSIUM CHLORIDE 20 MEQ TABLET.ER. PO ONE (20:30)
[2019-05-26 20:50] VITALS: BP 194/92
--- NOTE | 2019-05-27 06:56 | EKG ---
[facility] [address] [place] [address] Test Date: 2019-05-26 Test Time: 17:44:31 Pat Name: ANGELO WILDER Department: Room: Gender: F Performance Analyst: : 1935 Requested By: ANGELITA GUAMAN Order Number: [id number] Reading MD: Measurements Intervals [place] Rate: 89 P: -3 NE: 146 QRS: -7 QRSD: 72 T: 62 QT: 368 QTc: 454 Interpretive Statements SINUS RHYTHM ATRIAL PREMATURE COMPLEX(ES) LEFTWARD AXIS NON SPECIFIC ST-T ABNORMALITY (ELEVATION) OTHERWISE NORMAL ECG No previous ECG available for comparison
== END 2019-05-26 20:56 | disposition home or self-care (01) ==
LOC: ER 17:26
DX: R42 Dizziness and giddiness (principal); I10 Essential (primary) hypertension; R51 Headache; R11.0 Nausea; Z88.0 Allergy status to penicillin
CPT/HCPCS: 36415; 70450; 71045; 80053; 81001; 83735; 83880; 84443; 84484; 85025; 87086; 93005; 96374; 99285; J3490